=== PATIENT | female | born 1990 | race Caucasian/White ===

== ENCOUNTER 2019-11-17 12:43 | Outpatient (RCR) | payer OTHER, SELFPAY ==
[2019-11-17] VITALS (9 sets, daily range): BP systolic 105–135; BP diastolic 55–77; PULSE 85–97; RESP 12–18; TEMP 36.3–37.3; O2SAT 100; BMI 40.7
[2019-11-17 13:44] LABS: Hemoglobin 5.1 g/dL (12.0-15.0)
[2019-11-17 13:45] LABS: Hematocrit 20.3 % (37.0-47.0)
[2019-11-17] MEDS: ACETAMINOPHEN 325 MG TABLET 650 MG PO (14:38)
== END 2020-02-15 23:59 | disposition home or self-care (01) ==
LOC: ANHCPCTRAN 12:43
PROVIDERS: Visit Provider Student in an Organized Health Care Education/Training Program
DX: D64.9 Anemia, unspecified (principal); N93.9 Abnormal uterine and vaginal bleeding, unspecified
CPT/HCPCS: 36415; 36430; 85014; 85018; 86850; 86900; 86901; 86923; A9270; P9016

== ENCOUNTER 2019-12-07 16:41 | Outpatient (CLI) | payer OTHER, SELFPAY ==
[2019-12-07 17:10] LABS: Hematocrit 29.3 % (37.0-47.0); Hemoglobin 8.1 g/dL (12.0-15.0)
== END 2019-12-07 16:42 | disposition home or self-care (01) ==
PROVIDERS: Visit Provider Student in an Organized Health Care Education/Training Program
DX: D64.9 Anemia, unspecified (principal)
CPT/HCPCS: 36415; 85014; 85018

== ENCOUNTER 2019-12-09 01:33 | Day surgery (SDC) | payer OTHER, SELFPAY ==
[2019-12-06 14:59] VITALS: BMI 40.9
--- NOTE | 2019-12-09 10:44 | PM.IMHP ---
H&P: HPI History of Present Illness Chief complaint: abn uterine bleeding with anemia Narrative: Abi Gutierrez is a 29 year old female who presents to the office with abnormal uterine bleeding. She complains of heavy and prolonged bleeding. Pelvic US showed a thickened heterogenous endometrial complex that appeared to be mobile during the exam. The complex also showed enhanced blood flow throughout. Patient was placed on OCPs to control bleeding prior to placement of Mirena IUD. Lab work revealed a Hgb of 5 and the patient required 2 units pRBC. She re-presented to the office complaining of persistent bleeding despite OCP therapy. Review of Systems Cardiovascular: Cardiovascular: Denies chest pain, Denies leg edema, Denies palpitations, Denies dyspnea and Denies dyspnea on exertion Respiratory: Respiratory: Denies cough, Denies dyspnea and Denies dyspnea on exertion Gastrointestinal: Gastrointestinal: Denies abdominal pain, Denies constipation, Denies diarrhea, Denies nausea and Denies vomiting Genitourinary: Genitourinary: Denies hematuria, Denies urinary frequency, Denies dysuria, Denies pelvic pain, Denies urinary incontinence and Denies vaginal discharge Neurologic: Reports system reviewed and no additional complaints, except as documented Psychiatric: Psychiatric: Reports no additional psychiatric complaints Endocrine: Endocrine: Denies palpitations PMFSH Social History Social History Gender identity (if verbalized by the patient): Female Meds Home Medications and Allergies Home Medications Medication Instructions Recorded Confirmed Type No Home Medications 11/17/19 11/17/19 History Allergies Allergy/AdvReac Type Severity Reaction Status Date / Time No Known Allergies Allergy Verified 12/06/19 14:57 Exam Const: General: no acute distress Eyes: EOM: EOMs intact bilaterally Neck: Neck: supple Thyroid: thyroid normal Chest: Breast/axilla inspection: normal inspection of the breasts Breast/axilla palpation: normal palpation of the breasts, normal palpation of the axillae and no axillary lymphadenopathy Resp: Effort & Inspection: normal respiratory effort Auscultation: clear to auscultation bilaterally Cardio: Rate: regular rate Rhythm: regular rhythm GI: Inspection: non-distended GI Palp: Yes Soft to palpation, No Tenderness to palpation present (GI) and No Guarding due to palpation present (GI) Auscultation: normal bowel sounds : General: No bladder normal to palpation External Female Exam: normal external appearance Speculum Exam - Vagina: normal vaginal discharge and vaginal bleeding Speculum Exam - Cervix: nontender Bimanual exam- vagina & uterus: No bladder normal to palpation and No Cervical tenderness present OB/external & speculum: No vaginal bleeding Skin: General skin exam: normal color and no rashes or lesions noted Neuro: Cognition (Neuro): normal cognition Speech: normal speech Extrem: General: normal to inspection and no edema Psych: Mental Status: mental status grossly normal Affect: normal affect Assessment and Plan Assessment and plan (1) Abnormal uterine bleeding (AUB): Code(s): N93.9 - Abnormal uterine and vaginal bleeding, unspecified Status: Acute Assessment and Plan: heavy prolonged vaginal bleeding bleeding down to hgb of 5, requiring 2 units pRBC hgb s/p transufsion 8 pt with persistent bleeding despite OCP therapy US showed hetrogenous endometrial complex plan for hysteroscopy D&C with placement of IUD
[2019-12-09 11:39] VITALS: BMI 39.9
[2019-12-09] MEDS: LACTATED RINGERS 1,000 ML 30 ML IV CONT (11:58)
--- NOTE | 2019-12-09 12:44 | WPDANESEPPF ---
Anes - Initial Pre Proc Eval Procedure: Operation Date: 12/09/19 13:30 Proposed Procedures p Hysteroscopy, Dilation and Curettage, Insertion Mirena - Saurabh Morse MD Date/Time: 12/09/19 12:44 Surgeon: Saurabh Morse MD Pre Op Diagnosis: abn uterine bleeding with anemia Patient Data Age: 29 Gender: F Height: 5 ft 6 in Weight: 112.4 kg Allergies Allergy/AdvReac Type Severity Reaction Status Date / Time No Known Allergies Allergy Verified 12/06/19 14:57 Home Medications Medication Instructions Recorded Confirmed Type No Home Medications 11/17/19 11/17/19 History Patient hx anesthesia problems: none Family hx anesthesia problems: none [facility] Past Medical History Medical History (Updated 12/09/19 @ 12:44 by Freddy Beard MD) Obesity Surgical History Surgical History (Updated 12/09/19 @ 12:44 by Freddy Beard MD) S/P ACL repair Social History Social History Gender identity (if verbalized by the patient): Female Anes - Eval Final PreProcedure Day of Procedure 12/09/19 12:44 Patient weight: morbidly obese Heart: regular rate and rhythm Lungs: clear to auscultation Airway: Mallampati scale class II Neurological: alert and oriented Last oral intake: >/= 8 hours ASA classification: III Emergent: no Anesthetic plan: proceed Anesthesia type and monitoring: general GIVS Informed Consent: The patient's anesthetic plan and its attendant risks and benefits were discussed with the patient/family/POA. Questions were solicited and answers provided to the satisfaction of the patient/family/POA.
[2019-12-09 13:29] VITALS: BP 143/80; PULSE 74; RESP 16; TEMP 36.4; O2SAT 100
[2019-12-09] MEDS: KETOROLAC 30 MG/ML VIAL (*BKC) IM (13:32)
--- NOTE | 2019-12-09 13:51 | SUR.OPER ---
hysteroscopy fluid:.250cc out of bag, 250cc collected
--- NOTE | 2019-12-09 13:54 | SUR.OPER ---
ebl:20cc
--- NOTE | 2019-12-09 13:55 | PM.PROC ---
Procedure Note - Detailed Date of procedure: 12/09/19 Pre-op diagnosis: abn uterine bleeding with anemia Post-op diagnosis: same Procedure performed: Hysteroscopy Dilation and curettage, paracervical block, insertion of IUD Description of procedure: The patient was taken to the OR and general anesthesia induced. She was prepped and draped in yellow fin stirrups with support of the back and bilateral lower extremities. I/O catheterization performed of the bladder. Infiltration with 1% lidocaine at the 3 and 9 o'clock cervical positions was performed. A single tooth tenaculum was placed on the anterior lip of the cervix. The uterus sounded to 9 cm. The cervix was dilated with sequential Lisa dilators. Hysteroscopy, using a normal saline medium, was performed and showed the above findings. Sharp uterine curettage was then performed and tissue placed on Telfa. The hysteroscopy and D&c portions of the procedure were completed. The Mirena IUD device was then introduced to the level of the fundus. The device was withdrawn approximately 1.5cm. The mirena device was then released and advanced to the fundus. The IUD strings were then trimmed to 2-3 cm in length. The tenaculum was removed and hemostasis was observed. The patient tolerated the procedure well. Sponge, lap, and needle counts were correct. The patient had SCD's on throughout the case for VTE prophylaxis. The patient was taken to the recovery room in stable condition. Anesthesia: GETA Surgeon: Saurabh Morse MD Estimated blood loss (mL): 150 Urine output (mL): 25 Drains: No Packing: No Pathology: yes (endometrial curettings ) Complications: No immediate complications Condition: stable Disposition: PACU
[2019-12-09 13:59] VITALS: BP 124/81; PULSE 82; RESP 16; O2SAT 100
[2019-12-09 14:29] VITALS: PULSE 81; RESP 16; O2SAT 100
[2019-12-09 15:00] VITALS: BP 125/78; PULSE 73; RESP 14; O2SAT 100
== END 2019-12-09 15:39 | disposition home or self-care (01) ==
PROVIDERS: Visit Provider Student in an Organized Health Care Education/Training Program
PROC: 0U5B8ZZ Destruction of Endometrium, Via Natural or Artificial Opening Endoscopic (ICD-10-PCS; CPT 58563; principal; 2019-12-09 13:30)
DX: N93.9 Abnormal uterine and vaginal bleeding, unspecified (principal); N85.8 Other specified noninflammatory disorders of uterus; D64.9 Anemia, unspecified; Z30.430 Encounter for insertion of intrauterine contraceptive device; E66.01 Morbid (severe) obesity due to excess calories; Z68.41 Body mass index [BMI] 40.0-44.9, adult
CPT/HCPCS: 58558; 58300; 88305; A9270; J1885; J2250; J2704; J3010; J7030; J7120